=== PATIENT | male | born 1955 | race Caucasian/White ===

== ENCOUNTER → 2017-09-19 | Day surgery (SDC) | payer BC ==
[~2017-09-19] MED LIST: Propofol 200 MG/20 ML SDV IV ONE
[2017-09-19] MEDS: Lactated Ringers 1,000 ML IV SCH (08:49)
--- NOTE | 2017-09-19 15:41 | OR ---
DATE OF OPERATION: 09/19/2017 PREOPERATIVE DIAGNOSIS: SCREENING COLONOSCOPY. POSTOPERATIVE DIAGNOSIS: SCREENING COLONOSCOPY. SURGEON: Andrei Menchaca MD PROCEDURE: FULL-LENGTH COLONOSCOPY WITH FORCEPS POLYP REMOVAL X3. ANESTHESIA: MIXER FOAM RUBBER. COMPLICATIONS: None. SPECIMEN: Three polyps likely hyperplastic. FINDINGS: 1. Full-length colonoscopy. 2. Mild sigmoid diverticulosis. 3. Three separate small adenomas likely all hyperplastic. RECOMMENDATIONS: Followup pending path reports. INDICATIONS: The patient is due for a routine screening colonoscopy. Sent by Americo Horn. DESCRIPTION OF PROCEDURE: The patient was prepped and draped, placed in left lateral decubitus position. A lubricated Olympus colonoscope was inserted and easily and safely advanced to the cecum. Direct visualization of the ileocecal valve and appendiceal orifice was accomplished. We were able to intubate into the terminal ileum which was benign. Upon withdrawal, the cecal pouch and ascending colon appeared benign. Right at the hepatic flexure, the patient had a small, flat, hyperplastic-appearing polyp, removed in its entirety with 2 cold forceps biopsies. The rest of the transverse colon was unremarkable. Right at the splenic flexure, the patient had a second small hyperplastic-appearing polyp, also removed in its entirety with forceps biopsy. The descending colon was unremarkable. In the sigmoid colon, the patient had scattered diverticula, very mild in severity without any inflammatory change. There were no signs of any vascular abnormalities or colitis or bleeding sites. No polyps were seen in the sigmoid. At the rectosigmoid junction, the patient had another slightly larger polyp, still appearance was hyperplastic, removed with 2 cold forceps biopsies in its entirety. Resolution of bleeding at the site was spontaneous. The rectal vault was benign. Retroflexion of the scope in the rectum showed no anal lesions. Air was suctioned, scope removed without complication. JANNETTE/CAMRYN /[id number]
== END ==
LOC: CC.SDS 08:32
PROVIDERS: ATTEND Family Medicine
DX: Z12.11 Encounter for screening for malignant neoplasm of colon (principal); K57.30 Diverticulosis of large intestine without perforation or abscess without bleeding; D12.7 Benign neoplasm of rectosigmoid junction; D12.4 Benign neoplasm of descending colon; D12.3 Benign neoplasm of transverse colon; I10 Essential (primary) hypertension; E55.9 Vitamin D deficiency, unspecified; R91.1 Solitary pulmonary nodule; L82.1 Other seborrheic keratosis; Z79.899 Other long term (current) drug therapy
CPT/HCPCS: 45380; J2704; J7120

== ENCOUNTER 2018-10-29 18:00 | Emergency (ER) | payer BC ==
[2018-10-29] MEDS ORDERED: Silver Sulfadiazine 1% Crm 50 GM Tube TOP ONE ×2 (18:01→18:11)
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
[2018-10-29] MEDS: Silver Sulfadiazine 1% Crm 50 GM Tube TOP SCH (18:25)
[2018-10-29] MEDS: Silver Sulfadiazine 1% Crm 20 GM Tube TOP ONE (18:26)
== END 2018-10-29 18:30 | disposition home or self-care (01) ==
LOC: CC.ED 18:00
DX: T23.202A Burn of second degree of left hand, unspecified site, initial encounter (principal); I10 Essential (primary) hypertension; Z79.899 Other long term (current) drug therapy
CPT/HCPCS: 16020; 99282; A9270-GY

== ENCOUNTER → 2020-11-03 | Day surgery (SDC) | payer MEDICARE, BC ==
[2020-11-03] MEDS: Lactated Ringers 1,000 ML IV ONE (09:37)
--- NOTE | 2020-11-06 08:04 | OR ---
DATE OF OPERATION: 11/03/2020 PREOPERATIVE DIAGNOSIS: HISTORY OF POLYPS. POSTOPERATIVE DIAGNOSIS: HISTORY OF POLYPS. SURGEON: Andrei Menchaca MD PROCEDURE: FULL-LENGTH DIAGNOSTIC COLONOSCOPY WITH FORCEPS POLYP REMOVAL X1. ANESTHESIA: MAC. COMPLICATIONS: None. SPECIMEN: Small sessile polyp, 3 mm, distal sigmoid colon. FINDINGS: 1. Full-length colonoscopy. 2. Mild sigmoid diverticulosis. 3. Small tubular adenoma, distal sigmoid colon, less than 0.5 cm. RECOMMENDATIONS: Followup colonoscopy in 5 years. INDICATIONS: The patient had a prior history of polyps being removed. He is in for a routine followup. DESCRIPTION OF PROCEDURE: The patient was prepped and draped, placed in the left lateral decubitus position. A lubricated Olympus colonoscope was inserted and easily advanced to the cecum. Direct visualization of the ileocecal valve and appendiceal orifice was accomplished. The bowel prep was marginal. The patient had a lot of liquid stool in his colon and he is very hard to keep inflated. He had a lot of anal incompetence, so this was a challenging scope. Upon withdrawal, throughout the right transverse and descending colons, no abnormalities were seen. The patient does have scattered diverticular disease throughout the sigmoid colon, mild in severity. One small flat tubular adenoma was found around 35 cm, removed in its entirety with 3 forceps biopsies, this primarily measured about 3 to 4 mm. The rectal vault was benign. Retroflexion showed no anal lesions. Air was suctioned and the scope removed without complication. JANNETTE/CAMRYN /[id number]
== END ==
LOC: CC.SDS 09:24
PROVIDERS: ATTEND Family Medicine
DX: Z12.11 Encounter for screening for malignant neoplasm of colon (principal); D12.5 Benign neoplasm of sigmoid colon; K57.30 Diverticulosis of large intestine without perforation or abscess without bleeding; I10 Essential (primary) hypertension; E55.9 Vitamin D deficiency, unspecified; I87.2 Venous insufficiency (chronic) (peripheral); E66.9 Obesity, unspecified; Z79.899 Other long term (current) drug therapy; Z86.010 Personal history of colon polyps; Z68.32 Body mass index [BMI] 32.0-32.9, adult; Z98.890 Other specified postprocedural states
CPT/HCPCS: 45380; J7120

== ENCOUNTER 2024-12-13 07:35 | Emergency (ER) | payer MEDICARE, BC ==
[2024-12-13] MEDS ORDERED: Lidocaine 1% 5 ML VIAL INJECT ONE (08:04)
[2024-12-13] MEDS: Lidocaine 1% 5 ML VIAL INJECT ONE (08:19)
[2024-12-13] MEDS: Diphtheria,Pertussis(Acell),Tetanus Vaccine 0.5 ML Syringe IM ONE (08:23)
[2024-12-13] MEDS: Take Home: Acetaminophen/HYDROcodone 325-5 MG, 2 Tab Pack PO ONE (08:24)
[2024-12-13] MEDS: Take Home: Cephalexin 250 MG Cap, 4 Cap Pack PO ONE (08:24)
== END 2024-12-13 08:38 | disposition home or self-care (01) ==
LOC: CC.ED 07:35
DX: S61.302A Unspecified open wound of right middle finger with damage to nail, initial encounter (principal); I10 Essential (primary) hypertension; Z23 Encounter for immunization; Z79.899 Other long term (current) drug therapy; W23.1XXA Caught, crushed, jammed, or pinched between stationary objects, initial encounter
CPT/HCPCS: 11730; 90471; 90715; 99283-25; A9270-GY; J2003